=== PATIENT | male | born 1970 | race Caucasian/White ===

== ENCOUNTER 2019-08-03 10:52 | Outpatient (CLI) | payer BC, OTHER ==
[2019-08-03] MEDS ORDERED: ASCO10004 PO (11:30)
[2019-08-03] MEDS ORDERED: MULT-658 PO (11:30)
[2019-08-03] MEDS ORDERED: IBUP-1223 PO (11:30)
== END 2019-08-03 23:59 | disposition home or self-care (01) ==
LOC: STAR 10:52
PROVIDERS: ATTEND Orthopaedic Surgery
DX: Z02.9 Encounter for administrative examinations, unspecified (principal)

== ENCOUNTER 2019-08-09 06:08 | Day surgery (SDC) | payer BC ==
[~2019-08-09] VITALS: Ht 182.9 cm; Wt 104.0 kg
[~2019-08-09 06:08] MED LIST: ASCO10004 PO; IBUP-1223 PO; MULT-658 PO
[2019-08-09] MEDS ORDERED: ROPIvacaine/PF 0.5%, 30 ML ONE (06:25)
[2019-08-09] MEDS ORDERED: LIDOCAINE/PF 1%-EPI 1:200K, 30 ML ONE (06:25)
[2019-08-09] MEDS ORDERED: LACTATED RINGERS 1,000 ML IV SCH (06:51)
[2019-08-09] MEDS ORDERED: ACET-1600 PO (07:32)
[2019-08-09] MEDS ORDERED: ACETAMINOPHEN 500 MG TABLET PO ONE (08:00)
[2019-08-09] MEDS ORDERED: GABAPENTIN 300 MG CAPSULE PO ONE (08:00)
[2019-08-09] MEDS ORDERED: MIDAZOLAM 1 MG/ML, 2ML ONE (08:04)
[2019-08-09] MEDS ORDERED: FENTANYL PF 250 MCG/5ML ONE (08:05)
[2019-08-09] MEDS ORDERED: PROPOFOL 10 MG/ML, 20ML ONE (09:00)
[2019-08-09] MEDS ORDERED: KETOROLAC 30 MG/1 ML ONE (09:00)
[2019-08-09] MEDS ORDERED: ONDANSETRON 2MG/ML, 2ML ONE (09:00)
[2019-08-09] MEDS ORDERED: MEPERIDINE/PF 25MG/ML,1ML IVPush PRN (09:00)
[2019-08-09] MEDS ORDERED: PROMETHAZINE 25 MG/ML, 1ML IV PRN (09:00)
[2019-08-09] MEDS ORDERED: MIDAZOLAM 1 MG/ML, 2ML IV PRN (09:00)
[2019-08-09] MEDS ORDERED: hydrALAzine 20 MG/ML, 1ML IV PRN (09:00)
[2019-08-09] MEDS ORDERED: LIDOCAINE-MPF 2% ,5ML ONE (09:00)
[2019-08-09] MEDS ORDERED: METOPROLOL 1 MG/ML, 5ML IV PRN (09:00)
[2019-08-09] MEDS ORDERED: OXYcodone 5 MG/5 ML ORAL.SOL UDC PO PRN (09:00)
[2019-08-09] MEDS ORDERED: ALBUTEROL/IPRATROPIUM 2.5MG/0.5MG, 3 ML NPPB PRN (09:00)
[2019-08-09] MEDS ORDERED: CEFAZOLIN 1,000 MG ONE (09:00)
[2019-08-09] MEDS ORDERED: DEXAMETHASONE 4 MG/ML, 1ML ONE (09:00)
[2019-08-09] MEDS ORDERED: HYDROmorphone 2 MG/ML, 1ML IVPush PRN (09:00)
[2019-08-09] MEDS ORDERED: FENTANYL PF 100 MCG/2ML ONE (10:03)
[2019-08-09] MEDS: FENTANYL PF 100 MCG/2ML IV PRN ×2 (10:07→10:18)
[2019-08-09] MEDS ORDERED: OXYcodone 5 MG/5 ML ORAL.SOL UDC ONE (10:15)
== END 2019-08-09 11:45 | disposition home or self-care (01) ==
LOC: OUT 06:08
PROVIDERS: ATTEND Orthopaedic Surgery
DX: S83.232A Complex tear of medial meniscus, current injury, left knee, initial encounter (principal); S83.231A Complex tear of medial meniscus, current injury, right knee, initial encounter; S83.282A Other tear of lateral meniscus, current injury, left knee, initial encounter; S83.281A Other tear of lateral meniscus, current injury, right knee, initial encounter; T84.84XA Pain due to internal orthopedic prosthetic devices, implants and grafts, initial encounter; M85.661 Other cyst of bone, right lower leg; M94.261 Chondromalacia, right knee; M94.262 Chondromalacia, left knee; Z87.891 Personal history of nicotine dependence; Z72.89 Other problems related to lifestyle; Z88.8 Allergy status to other drugs, medicaments and biological substances; Z88.6 Allergy status to analgesic agent; Z91.040 Latex allergy status; X58.XXXA Exposure to other specified factors, initial encounter; Y83.8 Other surgical procedures as the cause of abnormal reaction of the patient, or of later complication, without mention of misadventure at the time of the procedure; Y92.89 Other specified places as the place of occurrence of the external cause; Y93.89 Activity, other specified; Y99.8 Other external cause status
CPT/HCPCS: 20680; 27638; 29880; C1762; J0690; J1100; J1885; J2250; J2405; J2704; J2795; J3010; J3490; J7120